=== PATIENT | female | born 1950 | race Caucasian/White ===

== ENCOUNTER 2022-04-06 19:16 | Emergency (ER) | payer OTHER ==
[~2022-04-06] VITALS: Ht 165.1 cm; Wt 100.0 kg
[~2022-04-06 19:16] MED LIST: CHOL20009 PO; DOCU100T15 PO; HYDR25TA4 PO; LEVO25TA6 PO; LISI-275 PO; MULT-927 PO; NEBI10TA2 PO; SACC1CAP3 PO; TRAM50TA2 PO
[2022-04-06] MEDS ORDERED: IOHEXOL 300 MG/ML 100ML BOTTLE IJ ONE (20:56)
[2022-04-06 23:36] LABS: Basophils # (auto) 0 10 ^3/uL (0-0.2); Basophils % (auto) 0.5 % (0.0-2.0); Eosinophils # (auto) 0.2 10 ^3/uL (0-0.8); Eosinophils % (auto) 2.3 % (0.0-7.0); Hematocrit 46.5 % (36.0-46.0); Hemoglobin 15.3 g/dL (12.2-16.2); Mean Corpuscular Hemoglobin 29.2 pg (28.0-32.0); Mean Corpuscular Hgb Conc. 32.8 g/dL (32.0-36.0); Monocytes # (auto) 0.7 10 ^3/uL (0-1.3); Monocytes % (auto) 8.8 % (0.0-12.0); Neutrophils # (auto) 5.3 10 ^3/uL (1.6-8.6); Neutrophils % (auto) 64.4 % (37.0-80.0); Red Blood Cells 5.22 10^6/uL (4.0-5.20); Red Cell Distribution Width 13.4 % (11.8-14.3); White Blood Cell 8.3 10^3/uL (4.4-10.8)
[2022-04-07] MEDS ORDERED: ONDANSETRON HCL 4 MG/2 ML VIAL IV ONE (00:45)
[2022-04-07] MEDS ORDERED: amLODIPine BESYLATE 5 MG TAB PO ONE (00:45)
[2022-04-07] MEDS ORDERED: HYDROmorphone HCL 2 MG/ML VL/or syr IV ONE (00:45)
[2022-04-07 01:33] LABS: BUN/Creatinine Ratio 31.8; Calcium 9.1 mg/dL (8.5-10.1); Potassium 4.4 mmol/L (3.5-5.1)
[2022-04-07 01:35] LABS: Bilirubin, Total 0.6 mg/dL (0.2-1.0); Total Protein 7.3 g/dL (6.4-8.2)
[2022-04-07] MEDS ORDERED: PERCOT PO (04:00)
[2022-04-07] MEDS ORDERED: AZIT250T9 PO (04:00)
[2022-04-07] MEDS ORDERED: DIAZ5TAB PO (04:00)
[2022-04-07] MEDS ORDERED: ONDA-144 PO (04:00)
[2022-04-07] MEDS ORDERED: SENN1TAB14 PO (04:00)
[2022-04-07 04:30] VITALS: BP 155/80
== END 2022-04-07 04:38 | disposition home or self-care (01) ==
LOC: EDBD 19:16 → ER 19:16
DX: S29.011A Strain of muscle and tendon of front wall of thorax, initial encounter (principal); S46.911A Strain of unspecified muscle, fascia and tendon at shoulder and upper arm level, right arm, initial encounter; J45.909 Unspecified asthma, uncomplicated; I10 Essential (primary) hypertension; R41.82 Altered mental status, unspecified; Z90.49 Acquired absence of other specified parts of digestive tract; Z90.710 Acquired absence of both cervix and uterus; Z88.6 Allergy status to analgesic agent; V43.62XA Car passenger injured in collision with other type car in traffic accident, initial encounter; Y93.89 Activity, other specified; Y92.488 Other paved roadways as the place of occurrence of the external cause; Y99.8 Other external cause status
CPT/HCPCS: 36415; 70450; 71260; 72125; 74177; 80053; 82550; 84484; 85025; 93005; 96374; 96375; 99285; J1170; J2405; Q9967

== ENCOUNTER → 2023-02-02 | Outpatient (CLI) | payer OTHER ==
[~2023-02-02] VITALS: Ht 165.1 cm; Wt 102.1 kg
[~2023-02-02] MED LIST changes: +ADENOSINE 86 MG in GIVE UN-DILUTED 0 ML IV ONE; +AZIT-43 PO; +DIAZ-681 PO; +ONDA-144 PO; +PERCOT PO; +SENN1TAB14 PO
== END | disposition home or self-care (01) ==
LOC: XYW 07:38
PROVIDERS: ATTEND Internal Medicine
DX: R07.89 Other chest pain (principal); E05.90 Thyrotoxicosis, unspecified without thyrotoxic crisis or storm; J45.909 Unspecified asthma, uncomplicated; R63.8 Other symptoms and signs concerning food and fluid intake; M65.30 Trigger finger, unspecified finger
CPT/HCPCS: 78452; 93017; A9500; J0153

== ENCOUNTER 2023-08-01 08:03 | Inpatient (IN) | payer OTHER ==
[~2023-08-01] VITALS: Ht 157.5 cm; Wt 102.0 kg
[2023-08-01] VITALS (15 sets, daily range): BP systolic 110–163; BP diastolic 57–88; PULSE 63–80; RESP 12–20; TEMP 98.5; O2SAT 95–98
[~2023-08-01 08:03] MED LIST changes: +ACET-1080 PO; -ADENOSINE 86 MG in GIVE UN-DILUTED 0 ML IV ONE; +ALB2.5IS NEB; +AMLO1TAB22 PO; -AZIT-43 PO; +CHOL100079 OR; -CHOL20009 PO; +CITA10TA6 PO; +CRAN500T6 PO; -DIAZ-681 PO; -DOCU100T15 PO; +FLUT100I IN; -HYDR25TA4 PO; -LISI-275 PO; +MAGN400T40 PO; +MISCCAP66 OR; -MULT-927 PO; +MULT1TAB70 PO; -NEBI10TA2 PO; -ONDA-144 PO; -PERCOT PO; +POLYDRO2 OP; +PROM1SOL4 PO; +SACU1TAB7 PO; -SENN1TAB14 PO; -TRAM50TA2 PO; +[UNRECOGNIZED DRUG - CODE] PO
[2023-08-01] MEDS: IODIXANOL 320MG/ML 100ML BTL IV ONE (09:50)
[2023-08-01] MEDS: LIDOCAINE 2%HCL (LOCAL ANESTH.) INJ 20ML MDV ONE (09:50)
[2023-08-01] MEDS: ANGIOMAX 250 MG VIAL IV ONE (09:55)
[2023-08-01] MEDS: HEPARIN SODIUM (PORCINE) 5000 UNITS/ML 1ML VIAL ONE (09:55)
[2023-08-01] MEDS: VERAPAMIL 2.5MG/ML INJ 2ML VIAL IV ONE (09:56)
[2023-08-01] MEDS: SODIUM CHL 0.9% 0 ML ONE (09:56)
[2023-08-01] MEDS: fentaNYL CITRATE 100 MCG/2 ML VL ONE (09:56)
[2023-08-01] MEDS: MIDAZOLAM HCL 2MG/2ML 2ml VIAL (1mg/ml) ONE (09:56)
[2023-08-01] MEDS ORDERED: MORPHINE SULFATE INJ 2 MG/ml SYRG IV PRN ×2 (11:15→11:30)
[2023-08-01] MEDS ORDERED: NITROGLYCERIN 0.4 MG SL TAB SL PRN ×2 (11:15→11:30)
[2023-08-01] MEDS: Sacubitril-Valsartan (Entresto 49-51 mg) PO SCH (22:00)
[2023-08-02] MEDS ORDERED: LEVOTHYROXINE SODIUM 100 MCG TAB PO SCH (07:00)
[2023-08-02] MEDS ORDERED: CITALOPRAM HYDROBR 20 MG TAB PO SCH (10:00)
[2023-08-02] MEDS ORDERED: amLODIPine BESYLATE 5 MG TAB PO SCH (10:00)
[2023-08-02] MEDS ORDERED: CHOLECALCIFEROL (VITD3) 1,000UNIT=25mCg TAB PO SCH (10:00)
== END 2023-08-01 22:45 | disposition short-term general hospital (02) | DRG 287 ==
LOC: CATH 08:03 → TELE 11:16 → TELE-WESTW 17:28
PROVIDERS: ADMIT Internal Medicine; ATTEND Internal Medicine
PROC: 4A023N7 Measurement of Cardiac Sampling and Pressure, Left Heart, Percutaneous Approach (ICD-10-PCS; principal; 2023-08-01)
PROC: B211YZZ Fluoroscopy of Multiple Coronary Arteries using Other Contrast (ICD-10-PCS; 2023-08-01)
PROC: B215YZZ Fluoroscopy of Left Heart using Other Contrast (ICD-10-PCS; 2023-08-01)
DX: I25.119 Atherosclerotic heart disease of native coronary artery with unspecified angina pectoris (principal); I50.22 Chronic systolic (congestive) heart failure; I11.0 Hypertensive heart disease with heart failure; J45.909 Unspecified asthma, uncomplicated; E03.9 Hypothyroidism, unspecified; Z91.048 Other nonmedicinal substance allergy status; Z90.49 Acquired absence of other specified parts of digestive tract
CPT/HCPCS: 93458; 99152; G0378; J2250; Q9967

== ENCOUNTER 2023-08-15 11:19 | Inpatient (IN) | payer OTHER ==
[~2023-08-15] VITALS: Ht 165.1 cm; Wt 100.6 kg
[2023-08-15 12:20] LABS: Basophils # (auto) 0.1 10 ^3/uL (0-0.2); Basophils % (auto) 0.5 % (0.0-2.0); Eosinophils # (auto) 0.2 10 ^3/uL (0-0.8); Eosinophils % (auto) 1.4 % (0.0-7.0); Hematocrit 33.5 % (36.0-46.0); Hemoglobin 10.6 g/dL (12.2-16.2); Lymphocytes # (auto) 1.5 10 ^3/uL (0.4-5.4); Lymphocytes % (auto) 12.5 % (10.0-50.0); Mean Corpuscular Hemoglobin 28.6 pg (28.0-32.0); Mean Corpuscular Hgb Conc. 31.5 g/dL (32.0-36.0); Mean Corpuscular Volume 90.7 fL (80.0-100.0); Monocytes # (auto) 0.9 10 ^3/uL (0-1.3); Monocytes % (auto) 7.4 % (0.0-12.0); Neutrophils # (auto) 9.2 10 ^3/uL (1.6-8.6); Neutrophils % (auto) 78.2 % (37.0-80.0); Red Blood Cells 3.69 10^6/uL (4.0-5.20); Red Cell Distribution Width 14.1 % (11.8-14.3); White Blood Cell 11.8 10^3/uL (4.4-10.8)
[2023-08-15 12:34] LABS: Alanine Aminotransferase 36 U/L (7-40); Albumin 3.8 g/dL (3.2-4.8); Alkaline Phosphatase 108 U/L (46-116); Anion Gap 9 (5-15); Aspartate Aminotransferase 33 U/L (13-40); BUN/Creatinine Ratio 18.8 (10.0-20.0); Blood Urea Nitrogen 13 mg/dL (9-23); Calcium 9.2 mg/dL (8.5-10.1); Carbon Dioxide 24 mmol/L (20-30); Chloride 106 mmol/L (98-107); Glucose 118 mg/dL (74-106); Potassium 4.4 mmol/L (3.5-5.1); Sodium 139 mmol/L (136-145)
[2023-08-15 12:35] LABS: Bilirubin, Total 0.9 mg/dL (0.2-1.0); Total Protein 5.4 g/dL (5.7-8.2)
[2023-08-15] MEDS: IOHEXOL 350 MG/ML 100ML IJ ONE (15:06)
[2023-08-15] MEDS ORDERED: NITROGLYCERIN 0.4 MG SL TAB SL PRN (15:15)
[2023-08-15] MEDS ORDERED: ALBUTEROL SULF 2.5 MG/0.5ML(0.5%) NEB SOLN NEB PRN (15:15)
[2023-08-15 16:52] VITALS: PULSE 75; RESP 16; O2SAT 96
[2023-08-15] MEDS: ENOXAPARIN SOD 100 MG/1 ML SYRINGE SC SCH (17:43)
[2023-08-15] MEDS: MORPHINE SULFATE INJ 2 MG/ml SYRG IV PRN (17:50)
[2023-08-15] MEDS: FUROSEMIDE 20 MG/2 ML VIAL IV SCH (18:10)
[2023-08-15 20:00] VITALS: PULSE 84; RESP 16; O2SAT 99
[2023-08-15] MEDS: ONDANSETRON HCL 4 MG/2 ML VIAL IV PRN (20:41)
[2023-08-16 02:15] VITALS: BP 107/59; PULSE 82; RESP 18; TEMP 98.5; O2SAT 96
[2023-08-16 05:37] VITALS: O2SAT 98
[2023-08-16 06:04] LABS: Basophils # (auto) 0.1 10 ^3/uL (0-0.2); Basophils % (auto) 0.5 % (0.0-2.0); Eosinophils # (auto) 0.3 10 ^3/uL (0-0.8); Eosinophils % (auto) 2.5 % (0.0-7.0); Hematocrit 30.3 % (36.0-46.0); Lymphocytes # (auto) 1.4 10 ^3/uL (0.4-5.4); Lymphocytes % (auto) 13.5 % (10.0-50.0); Mean Corpuscular Hemoglobin 30.3 pg (28.0-32.0); Mean Corpuscular Hgb Conc. 33.1 g/dL (32.0-36.0); Mean Corpuscular Volume 91.6 fL (80.0-100.0); Monocytes # (auto) 0.9 10 ^3/uL (0-1.3); Monocytes % (auto) 8.2 % (0.0-12.0); Neutrophils % (auto) 75.3 % (37.0-80.0); Nucleated Red Blood Cells % 0.5 %; Red Cell Distribution Width 14.4 % (11.8-14.3); White Blood Cell 10.6 10^3/uL (4.4-10.8)
[2023-08-16 06:12] LABS: Chloride 105 mmol/L (98-107); Sodium 137 mmol/L (136-145)
[2023-08-16 06:13] LABS: Anion Gap 7 (5-15); Calcium 9.2 mg/dL (8.5-10.1); Carbon Dioxide 25 mmol/L (20-30)
[2023-08-16 06:15] LABS: INR 1.07 (0.9-1.15); Partial Thromboplastin Time 27.9 SEC (24.5-34.5); Prothrombin Time 11.2 sec (9.3-11.8)
[2023-08-16 06:18] LABS: Glucose 104 mg/dL (74-106)
[2023-08-16 06:19] LABS: BUN/Creatinine Ratio 14.9 (10.0-20.0); Blood Urea Nitrogen 11 mg/dL (9-23)
[2023-08-16] MEDS: LEVOTHYROXINE SODIUM 100 MCG TAB PO SCH (06:32)
[2023-08-16 07:30] VITALS: PULSE 79; RESP 16; O2SAT 96
[2023-08-16] MEDS: cefTRIAXone 1GM/50ML D5W 50 ML IV SCH (09:14)
[2023-08-16] MEDS ORDERED: ASPirin-EC 81 mg tab PO SCH (10:00)
[2023-08-16] MEDS: SACUBITRIL-VALSARTAN 24mg/26mg TAB PO SCH (10:20)
[2023-08-16] MEDS: MORPHINE SULFATE INJ 2 MG/ml SYRG IV PRN (19:56)
[2023-08-16] MEDS: APIXABAN 5 MG TAB PO SCH (19:59)
[2023-08-16 21:04] VITALS: BP 130/81; PULSE 74; TEMP 37
[2023-08-16 22:00] VITALS: BP 111/58; PULSE 84; RESP 18; TEMP 98.4; O2SAT 94
[2023-08-16 22:51] VITALS: O2SAT 95
[2023-08-17] VITALS (7 sets, daily range): BP systolic 105–130; BP diastolic 51–68; PULSE 28–82; RESP 17–19; TEMP 36.8; O2SAT 93–95
[2023-08-17] MEDS ORDERED: ASPI81TA10 PO (14:25)
[2023-08-17] MEDS ORDERED: OMEP20TA PO (14:25)
[2023-08-17] MEDS ORDERED: APIX5TAB PO (14:25)
[2023-08-17] MEDS ORDERED: HYDR-4902 PO (16:34)
== END 2023-08-17 18:00 | disposition home or self-care (01) | DRG 175 ==
LOC: ER 11:19 → TELE 15:07 → TELE-CENTR 08-16 18:50
PROVIDERS: ADMIT Hospitalist; ATTEND Hospitalist
DX: I26.99 Other pulmonary embolism without acute cor pulmonale (principal); I50.43 Acute on chronic combined systolic (congestive) and diastolic (congestive) heart failure; I11.0 Hypertensive heart disease with heart failure; E78.5 Hyperlipidemia, unspecified; E03.9 Hypothyroidism, unspecified; I25.10 Atherosclerotic heart disease of native coronary artery without angina pectoris; J45.909 Unspecified asthma, uncomplicated; Z90.49 Acquired absence of other specified parts of digestive tract; Z90.710 Acquired absence of both cervix and uterus; Z95.1 Presence of aortocoronary bypass graft; Z82.49 Family history of ischemic heart disease and other diseases of the circulatory system; Z79.01 Long term (current) use of anticoagulants; Z86.711 Personal history of pulmonary embolism; Z91.048 Other nonmedicinal substance allergy status; Z88.8 Allergy status to other drugs, medicaments and biological substances; Z91.040 Latex allergy status; Z98.61 Coronary angioplasty status; Z86.718 Personal history of other venous thrombosis and embolism
CPT/HCPCS: 36415; 71046; 71275; 80048; 80053; 83880; 84484; 85025; 85610; 85730; 93005; 93306; 93970; 97163; G0378; J2405

== ENCOUNTER 2024-01-15 16:17 | Inpatient (IN) | payer OTHER ==
[~2024-01-15] VITALS: Ht 167.6 cm; Wt 99.7 kg
[~2024-01-15 16:17] MED LIST changes: +APIX5TAB PO; +ASPI81TA10 PO; -CRAN500T6 PO; +HYDR-4902 PO; -MISCCAP66 OR; -MULT1TAB70 PO; +OMEP20TA PO; -POLYDRO2 OP; -PROM1SOL4 PO; -SACC1CAP3 PO; -[UNRECOGNIZED DRUG - CODE] PO
[2024-01-15 17:57] VITALS: PULSE 64; RESP 16; O2SAT 98
[2024-01-15] MEDS: HYDROmorphone HCL 2 MG/ML VL/or syr IV ONE ×2 (18:41→22:15)
[2024-01-15] MEDS: ONDANSETRON HCL 4 MG/2 ML VIAL IV ONE (18:41)
[2024-01-15 19:40] LABS: Basophils # (auto) 0 10 ^3/uL (0-0.2); Basophils % (auto) 0.1 % (0.0-2.0); Eosinophils # (auto) 0 10 ^3/uL (0-0.8); Eosinophils % (auto) 0.1 % (0.0-7.0); Hemoglobin 14.5 g/dL (12.2-16.2); Lymphocytes # (auto) 1.5 10 ^3/uL (0.4-5.4); Lymphocytes % (auto) 13.4 % (10.0-50.0); Mean Corpuscular Hemoglobin 28.6 pg (28.0-32.0); Mean Corpuscular Hgb Conc. 33.1 g/dL (32.0-36.0); Mean Corpuscular Volume 86.6 fL (80.0-100.0); Monocytes # (auto) 0.7 10 ^3/uL (0-1.3); Monocytes % (auto) 6.2 % (0.0-12.0); Neutrophils % (auto) 80.2 % (37.0-80.0); Red Blood Cells 5.08 10^6/uL (4.0-5.20); Red Cell Distribution Width 16.3 % (11.8-14.3); White Blood Cell 11.2 10^3/uL (4.4-10.8)
[2024-01-15 20:08] LABS: Alanine Aminotransferase 34 U/L (7-40); Albumin 4.2 g/dL (3.2-4.8); Alkaline Phosphatase 93 U/L (46-116); Anion Gap 7 (5-15); Aspartate Aminotransferase 23 U/L (13-40); BUN/Creatinine Ratio 29.8 (10.0-20.0); Blood Urea Nitrogen 25 mg/dL (9-23); Calcium 9.9 mg/dL (8.7-10.4); Carbon Dioxide 26 mmol/L (20-30); Chloride 107 mmol/L (98-107); Glucose 155 mg/dL (74-106); Potassium 4.5 mmol/L (3.5-5.1); Sodium 140 mmol/L (136-145)
[2024-01-15 20:09] LABS: Bilirubin, Total 0.6 mg/dL (0.2-1.0); Total Protein 6.4 g/dL (5.7-8.2)
[2024-01-15] MEDS ORDERED: ONDANSETRON HCL 4 MG/2 ML VIAL IV PRN (22:15)
[2024-01-15] MEDS ORDERED: ACETAMINOPHEN 325 MG TAB PO PRN (22:15)
[2024-01-15 22:35] VITALS: PULSE 65; O2SAT 97
[2024-01-15] MEDS ORDERED: hydrALAZINE HCL 20 MG/ML VL IV PRN (22:45)
[2024-01-15] MEDS: HEPARIN SODIUM (PORCINE) 5000 UNITS/ML 1ML VIAL IV SCH (23:06)
[2024-01-15 23:56] LABS: Urine Bacteria FEW /hpf (None Seen); Urine Blood Negative /uL (Negative); Urine Clarity Clear (Clear); Urine Color Yellow (Yellow); Urine Protein, UAD Negative (Negative); Urine Specific Gravity 1.026 (1.001-1.035); Urine Urobilinogen Normal (Negative); Urine WBC 2 /hpf (0 - 5); Urine pH 6.5 (5.0-9.0)
[2024-01-16] VITALS (14 sets, daily range): BP systolic 111–151; BP diastolic 36–91; PULSE 56–67; RESP 16–20; TEMP 97.6–98.6; O2SAT 93–99
[2024-01-16] MEDS: HYDROcodone-ACET 5/325MG TAB PO PRN (01:21)
[2024-01-16] MEDS: MORPHINE SULFATE INJ 2 MG/ml SYRG IV PRN (05:07)
[2024-01-16 06:00] LABS: Basophils # (auto) 0 10 ^3/uL (0-0.2); Basophils % (auto) 0.2 % (0.0-2.0); Eosinophils # (auto) 0 10 ^3/uL (0-0.8); Eosinophils % (auto) 0.3 % (0.0-7.0); Hematocrit 41.3 % (36.0-46.0); Hemoglobin 13.6 g/dL (12.2-16.2); Lymphocytes # (auto) 1.6 10 ^3/uL (0.4-5.4); Lymphocytes % (auto) 16.2 % (10.0-50.0); Mean Corpuscular Hemoglobin 28.7 pg (28.0-32.0); Mean Corpuscular Volume 86.9 fL (80.0-100.0); Monocytes # (auto) 1.1 10 ^3/uL (0-1.3); Monocytes % (auto) 10.8 % (0.0-12.0); Neutrophils # (auto) 7.1 10 ^3/uL (1.6-8.6); Neutrophils % (auto) 72.5 % (37.0-80.0); Red Blood Cells 4.75 10^6/uL (4.0-5.20); Red Cell Distribution Width 16.2 % (11.8-14.3); White Blood Cell 9.8 10^3/uL (4.4-10.8)
[2024-01-16 06:13] LABS: Alanine Aminotransferase 27 U/L (7-40); Alkaline Phosphatase 77 U/L (46-116); Anion Gap 6 (5-15); BUN/Creatinine Ratio 27.7 (10.0-20.0); Blood Urea Nitrogen 18 mg/dL (9-23); Calcium 9.6 mg/dL (8.7-10.4); Carbon Dioxide 27 mmol/L (20-30); Chloride 105 mmol/L (98-107); Glucose 124 mg/dL (74-106); Sodium 138 mmol/L (136-145)
[2024-01-16 06:14] LABS: Albumin 3.9 g/dL (3.2-4.8); Aspartate Aminotransferase 16 U/L (13-40)
[2024-01-16 06:15] LABS: Bilirubin, Total 0.9 mg/dL (0.2-1.0)
[2024-01-16 06:16] LABS: INR 1.08 (0.9-1.15); Prothrombin Time 11.4 sec (9.3-11.8)
[2024-01-16] MEDS ORDERED: ROSU40TA47 PO (08:10)
[2024-01-16] MEDS ORDERED: MET25T PO (10:03)
[2024-01-16] MEDS ORDERED: CARV3.1240 PO (10:05)
[2024-01-16] MEDS ORDERED: ALBUTEROL MEDNEB 2.5 mg/3ml NEB NEB SCH (14:00)
[2024-01-16] MEDS: ALBUTEROL SULF 2.5 MG/0.5ML(0.5%) NEB SOLN NEB SCH (14:44)
[2024-01-16] MEDS: CARVEDILOL 3.125 MG TAB PO SCH (20:53)
[2024-01-16] MEDS: SENNA 8.6 MG TAB PO SCH (20:54)
[2024-01-16] MEDS: APIXABAN 5 MG TAB PO SCH (20:54)
[2024-01-16] MEDS: Sacubitril-Valsartan (Entresto 49-51 mg) TABLET PO SCH (22:00)
[2024-01-17] VITALS (7 sets, daily range): BP systolic 140–156; BP diastolic 59–78; PULSE 56–63; RESP 16–20; TEMP 97.4–98.7; O2SAT 94–98
[2024-01-17 05:42] LABS: Basophils # (auto) 0 10 ^3/uL (0-0.2); Basophils % (auto) 0.2 % (0.0-2.0); Eosinophils # (auto) 0.1 10 ^3/uL (0-0.8); Hematocrit 41.1 % (36.0-46.0); Hemoglobin 13.8 g/dL (12.2-16.2); Lymphocytes # (auto) 2.1 10 ^3/uL (0.4-5.4); Lymphocytes % (auto) 25.8 % (10.0-50.0); Mean Corpuscular Hemoglobin 29.2 pg (28.0-32.0); Mean Corpuscular Hgb Conc. 33.6 g/dL (32.0-36.0); Monocytes # (auto) 0.9 10 ^3/uL (0-1.3); Monocytes % (auto) 10.8 % (0.0-12.0); Neutrophils # (auto) 5.1 10 ^3/uL (1.6-8.6); Neutrophils % (auto) 62.2 % (37.0-80.0); Red Blood Cells 4.73 10^6/uL (4.0-5.20); Red Cell Distribution Width 16.1 % (11.8-14.3); White Blood Cell 8.2 10^3/uL (4.4-10.8)
[2024-01-17 05:50] LABS: Chloride 104 mmol/L (98-107); Potassium 4.2 mmol/L (3.5-5.1); Sodium 141 mmol/L (136-145)
[2024-01-17 05:51] LABS: Anion Gap 7 (5-15); Calcium 9.6 mg/dL (8.7-10.4); Carbon Dioxide 30 mmol/L (20-30)
[2024-01-17 05:56] LABS: Blood Urea Nitrogen 15 mg/dL (9-23); Glucose 97 mg/dL (74-106)
[2024-01-17] MEDS: LEVOTHYROXINE SODIUM 100 MCG TAB PO SCH (06:05)
[2024-01-17 08:58] LABS: Hepatitis B Surface Antigen Negative (Negative)
[2024-01-17 09:19] LABS: Hepatitis C Antibody Negative (Negative)
[2024-01-17] MEDS: CITALOPRAM HYDROBR 20 MG TAB PO SCH (09:21)
[2024-01-17] MEDS: PANTOPRAZOLE 40 MG TAB PO SCH (09:21)
[2024-01-17] MEDS: ROSUVASTATIN CALCIUM 40 MG PO SCH (10:00)
[2024-01-17] MEDS ORDERED: SENN-58 PO (11:20)
[2024-01-17] MEDS ORDERED: HYDR-4902 PO (11:20)
== END 2024-01-17 14:35 | disposition home health service (06) | DRG 563 ==
LOC: ER 16:17 → EDUNIT# 16:17 → EDBD 16:17 → TELE 22:24 → INTOOBSV 22:24 → TELE-EAST 01-16 01:50 → OBSVTOIN 01-16 09:02
PROVIDERS: ADMIT Nurse Practitioner Family; ATTEND Nurse Practitioner Family
PROC: 2W39X1Z Immobilization of Left Upper Extremity using Splint (ICD-10-PCS; principal; 2024-01-15)
DX: S42.212A Unspecified displaced fracture of surgical neck of left humerus, initial encounter for closed fracture (principal); S42.352A Displaced comminuted fracture of shaft of humerus, left arm, initial encounter for closed fracture; S09.90XA Unspecified injury of head, initial encounter; I25.10 Atherosclerotic heart disease of native coronary artery without angina pectoris; I10 Essential (primary) hypertension; J45.909 Unspecified asthma, uncomplicated; W01.0XXA Fall on same level from slipping, tripping and stumbling without subsequent striking against object, initial encounter; Z88.8 Allergy status to other drugs, medicaments and biological substances; Z91.040 Latex allergy status; Z86.718 Personal history of other venous thrombosis and embolism; Z95.1 Presence of aortocoronary bypass graft; Z90.710 Acquired absence of both cervix and uterus; Z90.49 Acquired absence of other specified parts of digestive tract; Y93.89 Activity, other specified; Y92.89 Other specified places as the place of occurrence of the external cause; Y99.8 Other external cause status; Z82.0 Family history of epilepsy and other diseases of the nervous system; Z86.73 Personal history of transient ischemic attack (TIA), and cerebral infarction without residual deficits; Z82.5 Family history of asthma and other chronic lower respiratory diseases; Z82.3 Family history of stroke
CPT/HCPCS: 36415; 70450; 71045; 72125; 73030; 73100; 73120; 80048; 80053; 81001; 83880; 84484; 85025; 85610; 86803; 87340; 94640; 96374; 96375; G0378; J2405

== ENCOUNTER 2024-10-22 08:12 | Day surgery (SDC) | payer OTHER ==
[2024-10-22] VITALS (7 sets, daily range): BP systolic 129–150; BP diastolic 53–76; PULSE 48–59; RESP 12–15; O2SAT 92–97
[~2024-10-22] VITALS: Ht 165.1 cm; Wt 103.4 kg
[~2024-10-22 08:12] MED LIST changes: +ALBU1AER4 IN; -AMLO1TAB22 PO; -ASPI81TA10 PO; -CHOL100079 OR; -HYDR-4902 PO; -MAGN400T40 PO; +MET25T PO; +MONT-8 PO; +NITR0.4S29 SL; -OMEP20TA PO; +ROSU20TA14 PO; +SACU1TAB4 PO; -SACU1TAB7 PO; +[UNRECOGNIZED DRUG - CODE] PO
[2024-10-22] MEDS ORDERED: ANGIOMAX 250 MG VIAL IV ONE (10:00)
[2024-10-22] MEDS ORDERED: HEPARIN SODIUM (PORCINE) 5000 UNITS/ML 1ML VIAL ONE (10:01)
[2024-10-22] MEDS ORDERED: MIDAZOLAM HCL 2MG/2ML 2ml VIAL (1mg/ml) ONE (10:01)
[2024-10-22] MEDS ORDERED: fentaNYL CITRATE 100 MCG/2 ML VL ONE (10:01)
[2024-10-22] MEDS ORDERED: VERAPAMIL 2.5MG/ML INJ 2ML VIAL IV ONE (10:01)
[2024-10-22] MEDS ORDERED: LIDOCAINE 2%HCL (LOCAL ANESTH.) INJ 20ML MDV ONE (10:19)
--- NOTE | 2024-10-22 10:59 | DVHOP2 ---
Operative Report - 2 Report Details Date: 10/22/24 Preop Diagnosis: CAD / cardiomyopathy. Postop Diagnosis: Patent saphenous grafts and left internal mammary artery to the obtuse marginal and LAD. Cardiomyopathy. Surgeon: Katya Raza MD Anesthesiologist: Conscious sedation. Anesthesia: Mac, Local Consent: The patient was informed of the risks and benefits of the procedure. These include but are not limited to complications of anesthesia, postoperative infection, incomplete relief of symptoms, recurrence of symptoms, damage to blood vessels, nerves and tendons, deep venous thrombosis, pulmonary embolism and possible need for repeat surgery in the future. Complications: No complications. Estimated Blood Loss: 2 cc. Findings: Cardiomyopathy. Patent saphenous grafts and internal mammary artery to the LAD. Patent RCA. Indications for Surgery: Chest pain. Shortness of breath. Name of Procedure Performed Bilateral cine coronary angiography. Left ventriculography. Visualization of saphenous venous grafts and left internal mammary artery. Angiography of right femoral artery and placement of closure device. Procedure Details Procedure Details: Prior local anesthesia with 2% lidocaine to the right groin and full informed consent obtained, under fluoroscopic and ultrasound guidance we placed a needle into the femoral artery subsequent to which we then placed a six [place] sheath into the femoral artery and six [place] Lyndsey catheters were used to cannulate both right and left coronary ostia and a six [place] pigtail was also used for ventriculography. A right coronary bypass was used to evaluate the saphenous graft. A left internal mammary catheter was used to evaluate the after internal mammary artery. No complications. Hemodynamics: Aortic blood pressure was 110/70. End-diastolic pressure was 15- 18. There was no gradient across the aortic valve on pullback. Coronary anatomy: The RCA is a large vessel it is patent. It has a mid 50-60% eccentric stenosis. The posterolateral branches and PDA are patent however with moderate plaquing. No critical lesions noted. Left main is large and heavily calcified. There is a complete occlusion of the circumflex proximally. The LAD has a 99% stenosis proximally followed by irregular lesions in calcified stenosis tandem. Competitive flow is noted from the left internal mammary artery. The anastomosis from the left internal mammary artery appears to be slightly stenotic with a 50-60% stenosis. The distal LAD is free of significant disease as is the mid LAD. Diagonals are patent. The saphenous venous graft to the marginal branches patent. There is an ostial 30-40% stenosis of the saphenous graft to the marginal. Marginal itself was free of significant disease with minimal retrograde flow into the circumflex. Left internal mammary artery anastomosed to the LAD is patent. Previously there was a 30-40% stenosis at the distal anastomosis to the LAD. Ventriculography in the ROGERS projection shows an EF of about30%. Global hypokinesis. Enlarged LV noted. Impression decreased left ventricular ejection fraction. Elevated left ventricular end-diastolic pressure at rest. Three-vessel coronary artery disease as delineated above with no significant critical lesions of the RCA to require revascularization. Patent saphenous graft to the marginal. Patent left internal mammary artery to the LAD. Recommendations: Medical therapy is warranted continue risk factor modification. Condition Good Disposition Home Date of Service: Oct 22, 2024 Billing Provider: KATYA RAZA Sr., MD Cardiology Common Codes: 78777-CFKSHQK INP/OBS CARE (High) Cardiology Procedure Codes: 16939-IMHS ADD COR ART/BRNCH/GRFT, 14169-P/L HEART CATH W/BYPASS GFT KATYA RAZA Sr., MD Oct 22, 2024 10:59
== END 2024-10-22 13:18 | disposition home or self-care (01) ==
LOC: CATH 08:12
PROVIDERS: ATTEND Internal Medicine
DX: R07.9 Chest pain, unspecified (principal); I25.10 Atherosclerotic heart disease of native coronary artery without angina pectoris; I42.9 Cardiomyopathy, unspecified; R06.02 Shortness of breath; I25.810 Atherosclerosis of coronary artery bypass graft(s) without angina pectoris; E78.00 Pure hypercholesterolemia, unspecified; I11.0 Hypertensive heart disease with heart failure; I50.9 Heart failure, unspecified; R73.03 Prediabetes; F41.9 Anxiety disorder, unspecified; F32.9 Major depressive disorder, single episode, unspecified; E03.9 Hypothyroidism, unspecified; J45.30 Mild persistent asthma, uncomplicated; Z86.718 Personal history of other venous thrombosis and embolism; Z86.711 Personal history of pulmonary embolism; Z90.49 Acquired absence of other specified parts of digestive tract; Z88.8 Allergy status to other drugs, medicaments and biological substances; Z79.899 Other long term (current) drug therapy; Z90.710 Acquired absence of both cervix and uterus; Z98.890 Other specified postprocedural states
CPT/HCPCS: 93459; C1725; C1887; C1894; J1644; J2250; J3010; 99152